=== PATIENT | female | born 1950 | race Caucasian/White ===

== ENCOUNTER 2019-12-09 20:58 | Emergency (ER) | payer MEDICARE, MEDICAID ==
[~2019-12-09] VITALS: Ht 162.6 cm; Wt 77.6 kg
[2019-12-09 21:01] VITALS: BP 138/63
== END 2019-12-09 23:02 | disposition home or self-care (01) ==
LOC: ED 21:28
DX: S29.012A Strain of muscle and tendon of back wall of thorax, initial encounter (principal); M51.14 Intervertebral disc disorders with radiculopathy, thoracic region; M54.2 Cervicalgia; M19.90 Unspecified osteoarthritis, unspecified site; X58.XXXA Exposure to other specified factors, initial encounter; Y93.89 Activity, other specified; Y92.89 Other specified places as the place of occurrence of the external cause; Y99.8 Other external cause status
CPT/HCPCS: 72125; 72128; 99285